=== PATIENT | female | born 1985 | race Caucasian/White ===

== ENCOUNTER 2018-05-09 19:31 | Emergency (ER) | payer MEDICAID ==
[~2018-05-09] VITALS: Ht 157.5 cm; Wt 101.8 kg
[~2018-05-09 19:31] MED LIST: FAMO-96 PO; HYDR-3498 PO; ONDA4TAB13 PO
[2018-05-09 20:10] VITALS: Ht 157.5 cm; Wt 101.8 kg
[2018-05-09] MEDS ORDERED: HYDROCODONE/APAP (5/325) TAB PO ONE (23:00)
[2018-05-09] MEDS ORDERED: HYDR-4011 PO (23:22)
[2018-05-09 23:26] VITALS: BP 142/74; PULSE 72; RESP 17
--- NOTE | 2018-05-09 23:26 | ERD ---
ER Documentation Chief Complaint Chief Complaint PT c/o umbillical pain x 2 hrs, hx if hernia HPI Is a 32-year-old female who presents with abdominal. This pain is chronic. She states is secondary to a umbilical hernia that she has had for several years. She takes ibuprofen but it did not help this time. No fever. No vomiting or diarrhea. No urinary symptoms. ROS All systems reviewed and are negative except as per history of present illness. Medications Home Meds Active Scripts Hydrocodone/Acetaminophen ([place] 5-325 Tablet) 1 Each Tablet, 1 TAB PO Q6H PRN for PAIN, #15 TAB Prov:JUANITA SEGAL PA-C 05/09/18 Famotidine* (Pepcid*) 20 Mg Tablet, 20 MG PO BID for 4 Days, TAB Prov:TAL STAFFORD PA-C 07/22/15 Hydrocodone Bit-Acetaminophen* ([place]*) 5-325 Mg Tab, 1 TAB PO Q6 PRN for PAIN, #7 TAB Prov:TAL STAFFORD PA-C 07/22/15 Ondansetron Hcl* (Zofran*) 4 Mg Tab, 4 MG PO Q6H PRN for NAUSEA AND OR VOMITING, #20 TAB Prov:ESDRAS ERWIN 01/16/14 Allergies Allergies: Coded Allergies: No Known Allergy (Unverified , 07/22/15) PMhx/Soc History of Surgery: Yes ([id number] 2014) Anesthesia Reaction: No Hx Neurological Disorder: No Hx Respiratory Disorders: No Hx Cardiac Disorders: No Hx Psychiatric Problems: No Hx Miscellaneous Medical Probl: Yes ( abd.hernia) Hx Alcohol Use: No Hx Substance Use: No Hx Tobacco Use: No Smoking Status: Never smoker Physical Exam Vitals Vital Signs Date Temp Pulse Resp B/P (MAP) Pulse Ox O2 O2 Flow FiO2 Time Delivery Rate 05/09/18 98.3 85 16 153/84 97 20:10 (107) Physical Exam INITIAL VITAL SIGNS: Reviewed by me GENERAL: Awake, alert and oriented x 4, well appearing, nontoxic, speaking in full sentences. No acute distress RESPIRATORY: Clear to auscultation bilaterally. Symmetric chest wall rise. No wheezing or rales. No accessory muscle use. CV: Regular rate and rhythm. No murmurs, rubs, or gallops. ABDOMEN: Soft, non-distended. Nontender. Negative [place]. Negative [place] point tenderness. No CVA tenderness bilaterally. No guarding. No rebound. : Deffered. Results 24 hrs Laboratory Tests Test 05/09/18 22:58 POC Beta HCG, Qualitative NEGATIVE Current Medications Medications Dose Sig/Jeet Start Time Status Last (Trade) Ordered Route PRN Stop Time Admin Dose Reason Admin 1 tab ONCE ONCE 05/09/18 DC 05/09/18 Acetaminophen PO 23:00 22:58 / 05/09/18 23:01 Hydrocodone Bitart ([place] (5/325)) Procedures/MDM Patient has abdominal pain. She is afebrile well-appearing in no distress. GI examination is benign. She states his pain is chronic secondary to hernia. No signs of incarcerated hernia. Prescription for small amount of [place] given. Her test is negative. Patient counseled regarding my diagnostic impression and care plan. Prior to discharge all questions answered. Pt agrees with treatment plan and understands strict return precautions. Pt is instructed to follow up with primary care provider within 24-48 hours. Precautionary instructions provided including instructions to return to the ER if not improving or for any worsening or changing symptoms or concerns. Departure Diagnosis: Primary Impression: Abdominal pain Condition: Stable Patient Instructions: Abdominal Pain Additional Instructions: Call your primary care doctor TOMORROW for an appointment during the next 1-2 da ys.See the doctor sooner or return here if your condition worsens before your appointment time. JUANITA SEGAL PA-C May 09, 2018 23:26
== END 2018-05-09 23:27 | disposition home or self-care (01) ==
LOC: FTE 19:31
DX: R10.9 Unspecified abdominal pain (principal)
CPT/HCPCS: 81025; Z7502; Z7610; 99283